=== PATIENT | female | born 1980 | race African-American/Black ===

== ENCOUNTER 2019-10-17 15:59 | Outpatient (CLI) | payer OTHER, SELFPAY ==
--- NOTE | ~2019-10-17 | MM_ITS ---
EXAMINATION: MM screening [facility] w bernadine HISTORY: Baseline screening mammogram TECHNIQUE: Craniocaudal and mediolateral oblique 3-D tomosynthesis images were obtained and synthetic 2-D images were generated. CAD analysis was submitted and interpreted. COMPARISON: None, baseline BREAST PARENCHYMAL COMPOSITION: The breasts are extremely dense, which lowers the sensitivity of mamm ography. FINDINGS: There is no evidence of suspicious mass, calcification, or architectural distortion to sugg est malignancy in either breast. IMPRESSION: 1. No mammographic evidence of malignancy. 2. Recommend routine screening mammography in one year. BI-RADS Category 1: Negative Reviewed, dictated and finalized at location A.
== END 2019-10-17 16:00 | disposition home or self-care (01) ==
LOC: ANHIMG 16:06
PROVIDERS: PCP Family Medicine; Visit Provider Obstetrics & Gynecology
DX: Z12.31 Encounter for screening mammogram for malignant neoplasm of breast (principal)
CPT/HCPCS: 77063; 77067

== ENCOUNTER 2024-04-25 10:47 | Outpatient (CLI) | payer OTHER, SELFPAY ==
--- NOTE | ~2024-04-25 | MM_ITS ---
EXAMINATION: MM screening [facility] w bernadine HISTORY: Screening TECHNIQUE: Craniocaudal and mediolateral oblique 3-D tomosynthesis images were obtained and synthetic 2-D images were generated. CAD analysis was submitted and interpreted. COMPARISON: 10/17/2019 BREAST PARENCHYMAL COMPOSITION: The breasts are extremely dense, which lowers the sensitivity of mamm ography. FINDINGS: Stable, extremely dense parenchymal pattern without suspicious microcalcifications, architectural dis tortion, discrete masses or significant asymmetry. IMPRESSION: 1. No mammographic evidence of malignancy. 2. Recommend routine screening mammography in one year. BI-RADS Category 1: Negative Reviewed, dictated and finalized at location A. J2EE PROGRAMMER
== END 2024-04-25 10:48 | disposition home or self-care (01) ==
PROVIDERS: PCP Family Medicine; Visit Provider Obstetrics & Gynecology
DX: Z12.31 Encounter for screening mammogram for malignant neoplasm of breast (principal)
CPT/HCPCS: 77063; 77067

== ENCOUNTER 2025-04-27 08:31 | Outpatient (CLI) | payer OTHER, SELFPAY ==
--- NOTE | ~2025-04-27 | MM_ITS ---
EXAMINATION: MM screening [facility] BI w bernadine HISTORY: Screening TECHNIQUE: Craniocaudal and mediolateral oblique 3-D tomosynthesis images were obtained and synthetic 2-D images were generated. CAD analysis was submitted and interpreted. COMPARISON: Comparison to multiple prior studies sequentially, with oldest reviewed study dated 10/17/2019. BREAST PARENCHYMAL COMPOSITION: Dense: The breasts are extremely dense, which lowers the sensitivity of mammography. FINDINGS: There is no evidence of suspicious mass, calcification, or architectural distortion to suggest malignancy in either breast. There has been no suspicious interval change. IMPRESSION: 1. No mammographic evidence of malignancy. 2. Recommend routine screening mammography in one year. BI-RADS Category 1: Negative Reviewed, dictated and finalized at location O. 411 DIRECTORY ASSISTANCE OPERATOR
--- OUTSIDE RECORDS SUMMARY | 2025-04-27 08:34 | XMS_ITS | Data Portability ---
Author Organization [place] - [facility], [place] - [facility] [place] Address [address] [place] [address] Care Team Providers Care Potato Grader Name Role Phone NENA OLIVIER Primary Care Provider [phone] Assessment Encounter Date Assessment Date Assessment LastModified by Organization Details LastModified Time 09/06/2023 09/06/2023 hallux rigidus with dorsal osteophyte -Discussed radiographs with patient and etiology of pain -Patient only having pain while wearing heels there is no pain otherwise -Recommended the patient discontinue use of heels however this is not an option for her -I explained the patient due to the osteophyte of the first met head is blocking her range of motion joint has mild arthritic changes however fairly well-preserved -I discussed use of NSAIDs and injections however due to the fact that she only has pain in heels that she wants where every so often I do not know how much this would really help her -Discussed cheilectomy as a possible easy procedure that would give her range of motion able to wear heels without having to do extensive surgery -Patient would like to have a surgical consult with Dr. Banerjee for cheilectomy contacted Dr. Banerjee's office he will call her to set this up [email or web address] Not available 09/06/2023 18:01:44 09/16/2023 09/16/2023 42-year-old female patient presents with right foot hallux rigidus. On exam, decreased 1st MPJ ROM with no pain or crepitus. No pain with end of ROM. Palpable exostosis noted to dorsal 1st MTH with no pain. No pain elicited on exam Right foot x-rays previously obtained on 5/6/24 were reviewed. Narrowing of 1st MPJ space. Dorsal exostosis noted to 1st metatarsal head. 1st metatarsal elevatus noted. Discuss with patient current diagnosis of hallux rigidus, prognosis, and available treatment options.Reviewed with patient RICE therapy (rest, ice, compression, elevation), NSAIDs, steroids, Tylenol. Educated patient on proper shoe-gear with arch support.. Advised patient to avoid shoes with narrow toe box that could cause increased pressure to the site . Patient would be good candidate for CFOs in the future to better stabilize the foot. Patient presents today for a surgical consult. Patient reports that she typically has no pain with day to day activities. Reports no issues completing ADLs. Only reports pain with high heels. No pain was elicited on exam today. Discussed with patient that the exostosis is a result of arthritis and is blocking her toe from gliding in the joint however, she also had 1st metatarsal elevatus which likely is a contributing factor to the formation of the exostosis. Due to this deformity, high heels would just further exacerbate the issue due to the way the shoe puts the foot in a disadvantage position causing more jamming of the joint. This creates inflammation/li n. Recommended adjusting her shoes by obtaining a lower heel or eliminating high heels all together. Due to no pain on exam, and this pain only be elicited from wearing high heels, I do not recommend surgical intervention at this time. Recommend adjustment of shoegear to manage symptoms. If something changes she would benefit from an exostosis removal with a decompression osteotomy to reduce the elevatus. Patient agreed with plan Follow up PRN 30 minutes total time on the date of this encounter including the snoc-pe-ikrg and ole-kxog-nk-face time physician personally spent before, during, and after the visit on the same day. Time included: care coordination, counseling and educating the patient about Hallux rigidus , documenting clinical information in the electronic health record, reviewing and/or getting separately obtained history from patient, and performing medically appropriate exam and evaluation. and communicating with PCP [email or web address] Not available 09/16/2023 23:11:06 Plan of Treatment Reminders Order Date Submit Date Provider Last Modified By Organization Details Last Modified Time Details Appointments None record ed. Lab None record ed. Referral None record ed. Procedures None record ed. Surgeries None record ed. Imaging XR, foot 024 09/06/19 24 [email or web address] [facility], [address] [address], [place], [address], 4 09:33:23 Medication Orders None record ed. Patient TargetsNo targets recorded. Patient InstructionsNo instructions recorded. Reason for Referral None Reported. Results Created Date Observation Date Name Description Value Unit Range Abnormal Flag Note LastModifiedBy Organization Detail LastModifiedTime 09/06/19 24 XR, foot No observ ation record ed. [email or web address] [facility] [address] [address], [place], [address], 09/06/2023 17:59:28 Result Notes None recorded. Problems Name Problem SNOMED Code Status Onset Date Resolution Date Notes Provider Name and Address Organization Details Recorded Time Acquired right hallux rigidus [id number] Active 2023 Bita Banerjee DPM [address] [place] [address], [id number] 23:11:27 Problem Notes None recorded. Medical Equipment None Reported. Medications Name Sig Start Date Stop Date Status Note LastModified by Organization Details LastModified Time Estarylla 0.25 mg-0.035 mg tablet TAKE 1 TABLET BY MOUTH DAILY active Not Available Not Available No t Available Vitals Date Recorded Body height Body mass index (BMI) Body weight Provider Name and Address Organization Details Last Updated DateTime 09/06/2023 172.72 cm 21.3 kg/m2 93716.93 g Lorrie Oglesby [facility] 09/06/2023 16:26:45 Date Recorded Body height Body mass index (BMI) Body weight Provider Name and Address Organization Details Last Updated DateTime 09/16/2023 172.72 cm 21.3 kg/m2 08143.93 g Laura Vargas [facility] 09/16/2023 17:25:26 Social History None recorded. Functional Status Question Answer Note LastModified by Organizat ion Details LastModified Time Are you currently employed? 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 Family History Nothing Reported. Medical History Condition Response Tuberculosis or TB N Heart Problems Y Ulcers on Legs or Feet N Coronary Artery Disease N HIV or AIDS N Seizure Disorder N Gout N High Blood Pressure N Clot in Lung or Pulmonary Embolism N Menopause N Lung Condition N Phlebitis or Venous Blood Clot N Migraines N Depression N Pacemaker N Anemia N Back Pain N Neurologic Disease N Sciatica N Heart Attack ([place]) N Diabetes N Urinary Tract Infections N Anxiety Disorder N Bleeding Disorder N Arthritis N Abuse of Alcohol or Drugs N Back injury N Ear Problems N Cancer N Dementia N Eye Problems N Stroke N Stomach Problems N Peripheral Vascular Disease N Sinus Conditions N Broken Bone N Thyroid Disorder N High Cholesterol N Hepatitis N Liver Disease N Heart Disease N Rheumatoid Arthritis N Rash N Osteoporosis N Kidney Disease N Gynecological HistoryNo gynecological history recorded. Obstetrics History GPAL:G 0 P 0 0 0 0 Past Encounters Encounter ID Performer Location Encounter Start Date Encounter Closed Date Diagnosis/Indication Diagnosis SNOMED-CT Code Diagnosis ICD10 Code Diagnosis IMO Codes Diagnosis Note [id number] Ronny MONTAÑO [address] [place] [address] 09/06/2023 16:11:40 09/06/2023 16:41:43 Bone spur of right foot [id number] 38383 M25.774 Acquired r ight hallux rigidus 1822751649 41254 M20.21 [id number] Bita Banerjee DPM [facility] [address] [place] [address] 09/16/2023 17:23:34 09/16/2023 17:43:02 Acquired right hallux rigidus 5118901583 88529 M20.21 Health Concerns Section Related Observation LastModified by Organization Detai ls LastModified Time None Recorded Concern Status LastModified by Organization Details LastModified Time None Recorded Advance Directives Directive None Recorded Payers Insurance Date Sequence Insurance Name Policy Number Policy Bethea Covered Member ID Bethea Member ID Guarantor Name 09/20/[address] [facility] [id number] Christal Roche [id number] Christal Mckeon Notes Date Note Type Note Provider Name and Address Organization Details Recorded Time 09/06/2023 text/html Toes---Reported by PatientHPIFor location, patient reportsright first toe(s). For quality, patient reportsaching. For severity, patient reportsno pain(only hurts when she wears heels then the pain is a 9/10). For duration, patient reports1 years. For timing, patient reportsoccasional(w hen wearing heels). For previous surgery, patient reportsnone. For prior imaging, patient reportsnone. For previous injections, patient reportsnone. For previous pt, patient reportsnone. For alleviating factors, (removing heels). For aggravating factors, (wearing heels). Ronny Saldivarsukumar [address] [place], [address], [facility] 09/06/2023 18:01:52 09/16/2023 text/html Toes---Reported by PatientHPIFor location, patient reportsright first toe(s). For quality, patient reportsaching. For severity, patient reportsno pain(only hurts when she wears heels then the pain is a 9/10). For duration, patient reports1 years. For timing, patient reportsoccasional(w hen wearing heels). For previous surgery, patient reportsnone. For prior imaging, patient reportsnone. For previous injections, patient reportsnone. For previous pt, patient reportsnone. For alleviating factors, (removing heels). For aggravating factors, (wearing heels).09/16/23 - Patient presents for surgical consult today. Patient reports pain only occurs when she wear heels. She states that if she did not wear heels she would have no issue. Denies pain with walking and doing day to day activities. Reports no issues with ambulating or doing daily activities. Bita Banerjee DPM [address] [place], [address], [employer] [facility] 09/16/2023 23:14:07 OBGyn Episode No OBEpisode recorded.
--- OUTSIDE RECORDS SUMMARY | 2025-04-27 08:34 | XMS_ITS | Clinical Summary ---
Author Organization [facility] [place] [address] [place] [address] Address [address] [place] [address] Care Team Providers Care Personal Development Coach Name Role Phone Lynn Ann MD Primary Care Provider [phone] Allergies No known active allergies Medications Estarylla 0.25-35 mg-mcg per tablet Take 1 tablet by mouth daily 3 Active rizatriptan BANQUET CHEF (MAXALT-BANQUET CHEF) 5 mg disintegrating tabletIndications:M igraine Take 1 tablet (5 mg total) by mouth once as needed for migraine May repeat in 2 hours if unresolved. Do not exceed 30 mg in 24 hours. 9 tablet 4 Active Active Problems Problem Noted Date Diagnosed Date Encounter for health maintenance examination Assessment & Plan (04/20/2024 8:56 AM STAKEHOLDER MANAGER): HEALTH MAINTENANCE/SCREENING ITEMS Risk Assessments/Screenings: Blood pressure: Normal Diabetes: Ordered today Lipids: Last completed 04/2023 ; Result showed The 10-year ASCVD risk score (Elle CORONA, et al., 2019) is: 0.2% Values used to calculate the score: Age: 43 years Sex: Female Is Non- : Yes Diabetic: No Tobacco smoker: No Systolic Blood Pressure: 112 mmHg Is BP treated: No HDL Cholesterol: 77 mg/dL Total Cholesterol: 161 mg/dL HIV: Completed / Up to date Hep C: Ordered today Hep B: Ordered today Chlamydia and Gonorrhea: Declined Today Osteoporosis: Not yet Indicated Depression: Depression: Not at risk (04/20/2024) PHQ-2 PHQ-2 Score: 0 Cancer Screenings: Breast: - Has appointment on Wednesday Cervical: Managed by OBGYN Colon:Not yet Indicated Skin: Encouraged sun protection, advised to let us know of any suspicious lesions Lung: Never smoker Immunizations: - Declined vaccinations Assessment & Plan (04/19/2023 1:24 PM STAKEHOLDER MANAGER): HEALTH MAINTENANCE/SCREENING ITEMS Risk Assessments/Screenings: Blood pressure: Normal Lipids: Ordered today Declined STD testing today Osteoporosis: Not Yet indicated Depression: Depression: Not at risk (04/19/2023) PHQ-2 PHQ-2 Score: 0 Cancer Screenings: Breast: Completed per patient last month, managed by OBGYN - FH: Maternal aunt Cervical: Managed by OBGYN - Dr. Guilherme Montero Colon:Not yet Indicated Skin: Encouraged sun protection, advised to let us know of any suspicious lesions Lung: Not due at this time Immunizations: - Declined flu shot Migraine without aura and wi thout status migrainosus, not intractable 04/19/2023 Assessment & Plan (04/20/2024 8:56 AM STAKEHOLDER MANAGER): - Chronic, not well controlled - Discussed with patient abortive vs prophylactic treatment - Through shared decision making will start: Rizatriptan as needed for migraine headache - If no relief or poor tolerability will consider Nurtec at follow up visit - If frequency increases will consider daily medication for migraine prevention - Discussed with patient that she should discuss progesterone only control options with her CLOD PULLER Assessment & Plan (04/19/2023 1:26 PM STAKEHOLDER MANAGER): - Chronic, intermittent - Discussed with patient abortive vs prophylactic treatment - Through shared decision making will continue Tylenol or Excedrin as needed - If no relief or poor tolerability will prescribe at triptan instead - If frequency increases will consider daily medication for migraine prevention - Labs ordered to assess for other etiology Immunizations Immunization Administration Dates Next Due DTP 10/06/1984, 1,03/10/1980,01/07/1980, 0 Influenza, Unspecified 04/20/2024(Deferr ed: Patient Refused),04/19/2023(Deferred: Patient Refused) MMR 11/18/1989,12/22/1980 OPV 10/06/1984, 1,03/10/1980,01/07/1980, 0 Td, adsorbed 11/18/1989 Social History Tobacco Use Types Packs/Day Years Used Date Smoking Tobacco: Never Tobacco Cessation:Counseling Given: Not Answered AUDIT-C Answer Date Recorded Q1: How often do you have a drink containing alc ohol? 2-4 times a month 04/20/2024 Q2: How many drinks containi ng alcohol do you have on a typical day when you are drinking? 1 or 2 04/20/2024 Q3: How often do you have si x or more drinks on one occasion? Never 04/20/2024 PHQ-2 Answer Date Recorded PHQ-2 Total Score 0 04/20/2024 Comments No Sex and Gender Information Value Date Recorded Sex Assigned at Not on file Legal Sex Female 8:41 AM STAKEHOLDER MANAGER Gender Identity Female 04/20/2023 10:03 AM STAKEHOLDER MANAGER Sexual Orientation Straight 04/20/2023 10 :03 AM STAKEHOLDER MANAGER Last Filed Vital Signs Vital Sign Reading Time Taken Comments Blood Pressure 112/68 04/20/2024 8:09 AM STAKEHOLDER MANAGER Pulse 60 04/20/2024 8:09 AM STAKEHOLDER MANAGER Temperature 36.8 C (98.2 F) 04/19/2023 12:30 PM STAKEHOLDER MANAGER Respiratory Rate 22 04/20/2024 8:09 AM STAKEHOLDER MANAGER Oxygen Saturation 99% 04/20/2024 8:09 AM STAKEHOLDER MANAGER Inhaled Oxygen Concentration - - Weight 61 kg (134 lb 8 oz) 04/20/2024 8:09 AM CS T Height 172.7 cm (5' 8) 04/20/2024 8:09 AM STAKEHOLDER MANAGER Body Mass Index 20.45 04/20/2024 8:09 AM STAKEHOLDER MANAGER Plan of Treatment Health Maintenance Due Date Last Done Comments Cervical Cancer Screening 1979 Colon Cancer Screening-Colonoscopy 1979 DTaP/Tdap/Td Vaccine (6 - Tdap) 09/18/1990 11/18/1989, 10/06/1984, 04/13/1981, Additional history exists Varicella Vaccines (1 of 2 - 13+ 2-dose series) 09/18/1992 HPV Vaccines (1 - 3-dose SCDM series) 09/18/2006 Breast Cancer Screening-Mammogram 03/03/2024 03/03/2023 Covid-19 Vaccine ( season) 2025 05/13/2021, 07/15/2020 Influenza Vaccine (#1) 2025 Depression Screening 04/20/2025 04/20/2024, 04/19/20 Regular Well Visit/Exam 18-64 04/20/2025 04/20/2024, 04/19/2023 Hepatitis B Screening Completed 04/20/2024 Hepatitis C Screening Completed 04/20/2024 Pneumococcal vaccine <65 Aged Out No longer eligible based on patient's age to complete this topic Procedures Procedure Name Priority Date/Time Associated Diagnosis Comments HEPATITIS C ANTIBODY Routine 04/20/2024 8:55 AM STAKEHOLDER MANAGER Need for hepatitis C screening test from Last 3 Months or Most Recently Relevant to Health Maintenance Results * Hepatitis C antibody Blood (04/20/2024 8:55 AM STAKEHOLDER MANAGER) Hep C Ab Nonreactive Nonreactive Comment:Antibodies to HCV no t detected. Does NOT exclude the possibility of recent exposure to HCV. Current interpretive data was last revised on 22 Blood 04/20/2024 8:55 AM STAKEHOLDER MANAGER 04/20/2024 12:20 PM STAKEHOLDER MANAGER Lynn Ann MD LAB MICROBIOLOGY - GENERAL ORDERABLES Final Result [facility] [place] [address] from Last 3 Months or Most Recently Relevant to Health Maintenance Insurance [facility] CHOICE PLUS Member Subscriber Plan / Payer (Ef fective 2022-Present) Name:Christal Mckeon Relation to Subscriber:Self Name:Christal Mckeon Payer ID:[id number] (NAIC) Type:[facility] HMO/PPO Address: [place] [id number] [facility] CHOICE PLUS Care Teams Personal Development Coach Relationship Specialty Start Date End Date Lynn Ann MD [facility] [place] [address] PCP - General Family Medicine 09/30/22
== END 2025-04-27 08:32 | disposition home or self-care (01) ==
LOC: ANHFOHIMG 08:32
PROVIDERS: PCP Obstetrics & Gynecology; Visit Provider Obstetrics & Gynecology
DX: Z12.31 Encounter for screening mammogram for malignant neoplasm of breast (principal)
CPT/HCPCS: 77063; 77067